=== PATIENT | female | born 1940 | race Two or more races ===

== ENCOUNTER 2022-10-19 13:23 | Emergency (ER) | payer OTHER ==
[~2022-10-19] VITALS: Ht 157.5 cm; Wt 45.4 kg
== END 2022-10-20 07:10 | disposition designated cancer center or children's hospital (05) ==
LOC: ER 13:23
PROVIDERS: Emergency Medicine
DX: R53.1 Weakness (principal); Z20.822 Contact with and (suspected) exposure to COVID-19